=== PATIENT | male | born 1985 | race Caucasian/White ===

== ENCOUNTER 2023-03-26 16:02 | Emergency (ER) | payer OTHER ==
[~2023-03-26] VITALS: Ht 180.3 cm; Wt 103.0 kg
[2023-03-26 16:27] LABS: BASOPHILS 0.3 % (0-2); EOSINOPHILS 0.9 % (0-6); HEMOGLOBIN 16.5 g/dL (12.0-18.0); LYMPHOCYTES 19.7 % (24-44); MCH 31.2 (27-36); MCHC 35.2 g/dl (30-36); MCV 88.6 fl (81-99); MONOCYTES 7.4 % (0-12); NEUTROPHILS 71.7 % (39-80); PLATELET COUNT 278 K/uL (140-440); RBC 5.31 M/ul (4.3-5.7); RDW 13.7 (10.5-15.0)
[2023-03-26 16:42] LABS: ALBUMIN 3.4 g/dL (3.4-5.0); ALBUMIN/GLOBULIN RATIO 0.79 (1.1-2.4); ANION GAP 14.4 (7-21); BILIRUBIN, TOTAL 0.4 ng/dL (0.2-1.0); BUN/CREATININE RATIO 12.14 (6.0-28.6); CALCIUM 9.2 mg/dL (8.5-10.1); CREATININE, SERUM 1.07 mg/dL (0.70-1.30); POTASSIUM 3.4 mmol/L (3.5-5.1); PROTEIN, TOTAL 7.7 g/dL (6.4-8.2)
[2023-03-26 18:16] VITALS: BP 125/89
== END 2023-03-26 18:16 | disposition home or self-care (01) ==
LOC: ED 16:02
PROVIDERS: Emergency Medicine
DX: F41.9 Anxiety disorder, unspecified (principal); Z88.0 Allergy status to penicillin
CPT/HCPCS: 36415; 80053; 85025; 99284; J7030